=== PATIENT | male | born 1975 | race Caucasian/White ===

== ENCOUNTER 2018-12-12 20:54 | Emergency (ER) | payer BC, OTHER ==
[~2018-12-12] VITALS: Ht 193 cm; Wt 115.7 kg
[2018-12-12] MEDS ORDERED: LORAZEPAM 0.50.5 M1 PO (21:00)
[2018-12-12] MEDS ORDERED: NORCO 5-325 TA1 EACH PO (22:23)
[2018-12-12] MEDS ORDERED: IBUPROFEN 600600 M1 PO (22:23)
[2018-12-12] MEDS ORDERED: SENNA-DOCUSATE1 EAC1 PO (22:23)
[2018-12-12 22:40] VITALS: BP 148/88
== END 2018-12-12 23:16 | disposition home or self-care (01) ==
LOC: ER 20:54
DX: S70.02XA Contusion of left hip, initial encounter (principal); S80.02XA Contusion of left knee, initial encounter; S70.12XA Contusion of left thigh, initial encounter; V03.00XA Pedestrian on foot injured in collision with car, pick-up truck or van in nontraffic accident, initial encounter; Y93.89 Activity, other specified; Y92.89 Other specified places as the place of occurrence of the external cause; Y99.8 Other external cause status